=== PATIENT | male | born 1975 | race Hispanic/Latino ===

== ENCOUNTER 2017-06-17 14:39 | Emergency (ER) | payer OTHER ==
[~2017-06-17] VITALS: Ht 170.2 cm; Wt 103.4 kg
[2017-06-17] MEDS ORDERED: ONDANSETRON HCL INJ 2 MG/ML VIAL IV STA (15:11)
[2017-06-17] MEDS ORDERED: SODIUM CHLORIDE 0.9% 1000ML 1,000 ML IV SCH (15:15)
[2017-06-17] MEDS: MORPHINE SULFATE 4 MG/ML SYR IV PRN ×2 (15:25→15:56)
[2017-06-17] MEDS ORDERED: SODIUM CHLORIDE 0.9% 1000ML 1,000 ML IV ONE (15:30)
[2017-06-17] MEDS ORDERED: LISINOPRIL10 MG PO (15:34)
[2017-06-17] MEDS ORDERED: eliquis (15:41)
[2017-06-17] MEDS ORDERED: ALLOPURINOL100 MG PO (15:43)
[2017-06-17] MEDS ORDERED: AMLODIPINE BESY10 MG PO (15:44)
[2017-06-17] MEDS ORDERED: IOPAMIDOL 300MG/ML 100 ML INFUS..BTL IV ONE (16:00)
[2017-06-17] MEDS ORDERED: POTASSIUM CHLORIDE 20 MEQ TAB CR PO STA (16:06)
[2017-06-17 17:41] VITALS: BP 146/84
== END 2017-06-17 16:50 | disposition home or self-care (01) ==
LOC: FSED 14:39
DX: R10.9 Unspecified abdominal pain (principal); E87.6 Hypokalemia; K57.90 Diverticulosis of intestine, part unspecified, without perforation or abscess without bleeding; I10 Essential (primary) hypertension; E78.5 Hyperlipidemia, unspecified; M10.9 Gout, unspecified; Z87.448 Personal history of other diseases of urinary system
CPT/HCPCS: 74177; 80053; 80307; 81003; 85025; 99283; J2405; Q9967

== ENCOUNTER 2018-09-23 12:10 | Emergency (ER) | payer OTHER ==
[~2018-09-23] VITALS: Ht 170.2 cm; Wt 99.8 kg
[~2018-09-23 12:10] MED LIST: ALLOPURINOL100 MG PO; AMLODIPINE BESY10 MG PO; LISINOPRIL10 MG PO; eliquis
--- OUTSIDE RECORDS SUMMARY | 2018-09-23 12:13 | XMS REPORT ---
Author Author [facility] Address Unknown Phone Unavailable Care Team Providers Care Booking Prizer Name Role Phone Unavailable Unavailable Problems This patient has no known problems. Allergies, Adverse Reactions, Alerts This patient has no known allergies or adverse reactions. Medications This patient has no known medications. Encounters Start Date/Time End Date/Time Encounter Type Admission Type Attending Clinicians Care Facility Care Department Encounter ID [id number] 00:00:00 2017-01-06 00:00:00 Outpatient [facility] [id number]
--- NOTE | 2018-09-23 13:15 | NUR ---
PT ELOPED, PT WAS ANGRY BECAUSE HE WANTED AN ULTRASOUND AND WAS UPSET THAT WE QUESTIONED HIM TO WHY HE STOPPED TAKING HIS BLOOD THINNNERS WITH OUT A DOCTORS ORDER. PT STATED THE DR LOOKED AT HIM LIKE HE WAS CRAZY. DR NOTIFIED. DR STATED HE SAID "THATS NOT VERY SMART TO STOP TAKING BLOOD THINNERS WITHOUT A DOCTORS ORDER"
== END 2018-09-23 13:15 | disposition left against medical advice (07) ==
LOC: FSED 12:10
DX: R10.9 Unspecified abdominal pain (principal); M10.021 Idiopathic gout, right elbow

== ENCOUNTER 2024-02-20 04:06 | Emergency (ER) | payer OTHER ==
[~2024-02-20] VITALS: Ht 170.2 cm; Wt 90.7 kg
[~2024-02-20 04:06] MED LIST changes: +KETOROLAC TROME10 MG PO; +ONDANSETRON ODT4 MG PO
[2024-02-20 04:10] VITALS: PULSE 120; RESP 20; TEMP 100.9; O2SAT 98
[2024-02-20] MEDS: ONDANSETRON HCL INJ 2MG/ML 2ML 2 MG/ML VIAL IV STA (05:00)
[2024-02-20] MEDS: ACETAMINOPHEN 325 MG TAB PO ONE (05:00)
[2024-02-20] MEDS: PREDNISONE 20 MG TAB PO ONE (05:01)
[2024-02-20] MEDS: KETOROLAC TROMETHAMINE 30 MG/ML VIAL IV STA (05:01)
[2024-02-20] MEDS: SODIUM CHLORIDE 0.9% 1000ML 1,000 ML IV STA (05:01)
== END 2024-02-20 05:10 | disposition home or self-care (01) ==
LOC: FSED 04:25
DX: R50.9 Fever, unspecified (principal); M10.9 Gout, unspecified; R11.2 Nausea with vomiting, unspecified; I10 Essential (primary) hypertension; Z79.01 Long term (current) use of anticoagulants; Z87.442 Personal history of urinary calculi
CPT/HCPCS: 36415; 84550; 86140; 99283; J1885; J2405; J7030; J7512